=== PATIENT | male | born 1970 | race Caucasian/White ===

== ENCOUNTER 2021-04-03 17:50 | Emergency (ER) | payer OTHER | END 2021-04-03 20:27 | disposition home or self-care (01) | LOC: ERS 17:50 | DX: T18.108A Unspecified foreign body in esophagus causing other injury, initial encounter (principal); E10.9 Type 1 diabetes mellitus without complications; E78.5 Hyperlipidemia, unspecified; E78.00 Pure hypercholesterolemia, unspecified; I10 Essential (primary) hypertension | CPT/HCPCS: 99283 ==

== ENCOUNTER 2024-09-23 09:22 | Outpatient (CLI) | payer OTHER | END 2024-09-23 09:23 | disposition home or self-care (01) | LOC: CT 09:22 | PROVIDERS: ATTEND Family Medicine | DX: I67.9 Cerebrovascular disease, unspecified (principal); I25.84 Coronary atherosclerosis due to calcified coronary lesion | CPT/HCPCS: 70498 ==